=== PATIENT | male | born 1960 | race Caucasian/White ===

== ENCOUNTER 2018-03-21 18:11 | Inpatient (IN) ==
[2018-03-21] MEDS ORDERED: 0.9 % Sodium Chloride 1,000 ML IVC ONE (19:16)
--- NOTE | 2018-03-21 19:32 | Emergency Department Note ---
START Narrative - START START: I examined this patient and my medical decision-making was reviewed with the Resident Physician. I agree with the documented findings, disposition and treatment plan as described except to the extent set forth below. 57 yo M here for fevers x 3 weeks or so. unknown etiology. will check labs, UA, CXR, blood cultures. had recent cbc that was normal. has fever here in ER. long list of possibilities. start with labs and imaging.
[2018-03-21 19:59] LABS: Basophils % 1.2 %; Eosinophils % 0.3 %; Immature Granulocytes % 0.3 % (0-4)
[2018-03-21 20:00] LABS: Hematocrit 36.4 % (37.5-50.1); Hemoglobin 13.3 g/dL (12.9-16.9); Immature Platelets 7.7 % (1.1-6.1); Lymphocytes % 28.5 %; Mean Corpuscular HGB Conc 36.5 g/dL (31.6-35.5); Mean Corpuscular Hemoglobin 31.1 pg (28.0-33.3); Mean Platelet Volume 11.9 fL (9.4-12.4); Monocytes # 0.4 K/mcL (0.0-1.3); Monocytes % 12.3 %; Neutrophils # 1.9 K/mcL (1.6-8.9); Nucleated Red Blood Cells 0.9 /100 WBC (0); Red Blood Count 4.28 M/mcL (4.19-5.50); Red Cell Distribution Width 12.7 % (11.5-14.5); Segmented Neutrophils % 57.4 %
--- NOTE | 2018-03-21 20:04 | Emergency Department Note ---
Disposition Clinical Impression: Abnormal CBC Fever Qualifiers: Fever type: unspecified Qualified Code(s): R50.9 - Fever, unspecified Disposition: Admitted As Inpatient Condition: Good Fever HPI - General Chief Complaint: ED Fever Stated Complaint: fever Source: patient, family Limitations: no limitations Nursing Notes Reviewed: Yes Vital Signs Reviewed: Yes - History of Present Illness HPI Narrative: Patient presents today for evaluation of fevers. Patient states he has had fever since the end of February. The patient states that he was initially seen at urgent care and symptoms did not resolve so he returned where they put him on Keflex and Bactrim which did resolve his symptoms while he was taking antibiotics. Patient states 2 days after the antibiotics finished the fevers returned. He has been seeing his primary care physician this Sunday and was placed on Augmentin for concern for sinus infection. Patient states antibiotics have not been improving his overall symptoms. The patient does not have any other symptoms in regards to pointing towards potential etiology. Does not have any upper respiratory, chest, abdominal or pelvic symptoms. There is no rash. No difficulty with urination. No history of recent exposures. No recent travel. No history of IV drug use. - Related Data Home Medications Medication Instructions Recorded Confirmed Cetirizine HCl [Zyrtec] 10 mg PO DAILY PRN 03/21/18 03/21/18 Allergies Allergy/AdvReac Type Severity Reaction Status Date / Time aspirin Allergy Anaphylaxis Verified 03/02/18 19:16 NSAIDS (Non-Steroidal Allergy Anaphylaxis Verified 03/02/18 19:16 Anti-Inflamma Review of Systems: CONSTITUTIONAL: Fevers and weight loss HEENT: Eyes: No visual changes. Ears, Nose, Throat: No hearing loss, difficulty talking or unable to swallow. SKIN: No rash or itching. CARDIOVASCULAR: No chest pain, chest pressure or chest discomfort. No palpitations or edema. RESPIRATORY: No shortness of breath, cough or sputum. GASTROINTESTINAL: No anorexia, nausea, vomiting or diarrhea. No abdominal pain or blood. GENITOURINARY: No burning on urination or hematuria. NEUROLOGICAL: No headache, dizziness, syncope, paralysis, ataxia, numbness or tingling in the extremities. No change in bowel or bladder control. MUSCULOSKELETAL: No muscle pain, back pain, joint pain or stiffness. Fever PMH - Past Medical History Medical history: Reports: no medical history Psychiatric history: Reports: no psych history - Social History Smoking Status: Never smoker Alcohol use: Reports: none Drug use: Reports: none Physical Exam General: Well appearing, nontoxic, no acute distress Head: Normocephalic Atraumatic Eyes: PERRL, EOMI ENT: Airway patent, no stridor Neck: supple, no meningismus Chest: Lungs clear to auscultation bilateral Cardiac: Regular rate and rhythm, no murmurs, rubs or gallops Abdomen: soft, nontender, nondistended; no guarding, rebound, or tenderness to percussion Musculoskeletal: Calves symmetric, nontender, no palpable cord Skin: No rash, normal skin tone Neuro: Alert and Oriented to person, place, and time; No focal deficit, CN 2-12 symmetric and intact - General Limitations: no limitations General appearance: alert, in no apparent distress, appears intoxicated Course - Reevaluation(s) Reevaluation #1: Patient with abnormal blood work. Discussed with oncology in regards to further management. Blood smears sent. LDH and CT scans requested. Reevaluation #2: Patient continues to feel significant improvement after his initial fluid bolus. Fevers broke. Patient wanted tachycardic. Patient does not appear septic as he is laughing and joking and in good spirits. Patient states that he feels good at this point since the fever has resolved. - Consultations Consultation #1: Discussed with oncology. Patient has abnormal CBC in the setting of fevers, night sweats, weight loss. The patient could have infectious process versus malignancy. Patient will undergo CT scan of head neck chest abdomen pelvis. Also requests LDH. Blood smear was also sent. Called back with the CT results. Infectious versus malignancy. Will possibly need bone marrow biopsy. We will evaluate in the hospital. Consultation #2: Discussed with hospitalist. Patient except for admission. Consult has been placed to oncology. We did discuss what had discussed with oncology in regards to antibiotics. He agrees that Bactrim and Keflex since these had worked previously for him can be restarted. No need for further antibiotics at this point. Vital Signs Temperature 101.6 F H 03/21/18 18:19 Pulse Rate 120 03/21/18 18:19 Respiratory Rate 22 18 18:19 Blood Pressure 118/75 03/21/18 18:19 O2 Sat by Pulse Oximetry 99 03/21/18 18:19 Temperature 99.4 F 03/22/18 00:14 Pulse Rate 97 03/22/18 00:14 Respiratory Rate 16 03/22/18 00:14 Blood Pressure 131/82 03/22/18 00:14 O2 Sat by Pulse Oximetry 97 03/22/18 00:14 Oxygen Delivery Oxygen Delivery Room Air Fever - Lab Data Result diagrams: 03/21/18 19:44 03/21/18 19:44 Lab Results 03/21/18 03/21/18 03/21/18 Range/Units 19:44 19:44 19:44 WBC 3.3 L (4.3-11.1) K/mcL RBC 4.28 (4.19-5.50) M/mcL Hgb 13.3 (12.9-16.9) g/dL Hct 36.4 L (37.5-50.1) % MCV 85.0 (83.0-100.0) fL MCH 31.1 (28.0-33.3) pg MCHC 36.5 H (31.6-35.5) g/dL RDW 12.7 (11.5-14.5) % Plt Count 76 L (140-400) K/mcL MPV 11.9 (9.4-12.4) fL Immature Gran % 0.3 (0-4) % Seg Neutrophils % 57.4 % Lymphocytes % 28.5 % Monocytes % 12.3 % Eosinophils % 0.3 % Basophils % 1.2 % Neutrophils # 1.9 (1.6-8.9) K/mcL Lymphocytes # 0.9 (0.6-4.6) K/mcL Monocytes # 0.4 (0.0-1.3) K/mcL Eosinophils # 0.0 (0.0-0.6) K/mcL Basophils # 0.0 (0.0-0.2) K/mcL Nucleated RBCs/100 WBC 0.9 H (0) /100 WBC Reactive Lymphocytes Present A (Not Present) Blood Smear Review See Below Dohle Bodies Present A (Not Present) Immature Plt Fraction 7.7 H (1.1-6.1) % Polychromasia 1+ A (Not Present) Smear Path Review See Below ESR 18 H (0-10) mm/hr PT 15.0 H (9.4-12.1) Seconds INR 1.4 Sodium (136-145) mEq/L Potassium (3.5-5.1) mEq/L Chloride (98-107) mEq/L Carbon Dioxide (23-29) mEq/L BUN (6-20) mg/dL Creatinine (0.70-1.30) mg/dL Est GFR ( Amer) (> 60) Est GFR (Non-Af Amer) (> 60) BUN/Creatinine Ratio (6-26) Glucose (70-105) mg/dL Calculated Osmolality (280-300) Lactic Acid (0.5-2.2) mmol/L Calcium (8.6-10.3) mg/dL Total Bilirubin (0.3-1.0) mg/dL Direct Bilirubin (0.0-0.2) mg/dL Indirect Bilirubin (0.0-1.2) mg/dL AST (13-39) Units/L ALT (7-52) Units/L Alkaline Phosphatase (34-104) Units/L Troponin I (< 0.04) ng/mL C-Reactive Protein (Less than 10) mg/L Serum Total Protein (6.4-8.9) g/dL Albumin (3.5-5.7) g/dL Globulin (2.4-3.5) g/dL Albumin/Globulin Ratio (1.1-2.2) Lipase (11-82) Units/L Urine Color (Yellow) Urine Clarity (Clear) Urine pH (5.0-8.0) pH Units Ur Specific [place] (1.010-1.025) Urine Protein (Neg-Trace) mg/dL Urine Glucose (UA) (Normal) mg/dL Urine Ketones (Negative) mg/dL Urine Blood (Negative) Urine Nitrite (Negative) Urine Bilirubin (Negative) Urine Urobilinogen (Normal) mg/dL Ur Leukocyte Esterase (Negative) Urine Microscopic RBC (0-3) per hpf Urine Microscopic WBC (0-3) per hpf Ur Squamous Epith Cells (None-Few) per lpf Urine Bacteria (None-Few) per hpf Hyaline Casts (None-Few) per lpf Ur Culture Indicated? (NO) Infectious [place] Assay (Negative) 03/21/18 03/21/18 03/21/18 Range/Units 19:44 19:44 19:44 WBC (4.3-11.1) K/mcL RBC (4.19-5.50) M/mcL Hgb (12.9-16.9) g/dL Hct (37.5-50.1) % MCV (83.0-100.0) fL MCH (28.0-33.3) pg MCHC (31.6-35.5) g/dL RDW (11.5-14.5) % Plt Count (140-400) K/mcL MPV (9.4-12.4) fL Immature Gran % (0-4) % Seg Neutrophils % % Lymphocytes % % Monocytes % % Eosinophils % % Basophils % % Neutrophils # (1.6-8.9) K/mcL Lymphocytes # (0.6-4.6) K/mcL Monocytes # (0.0-1.3) K/mcL Eosinophils # (0.0-0.6) K/mcL Basophils # (0.0-0.2) K/mcL Nucleated RBCs/100 WBC (0) /100 WBC Reactive Lymphocytes (Not Present) Blood Smear Review Dohle Bodies (Not Present) Immature Plt Fraction (1.1-6.1) % Polychromasia (Not Present) Smear Path Review ESR (0-10) mm/hr PT (9.4-12.1) Seconds INR Sodium 132 L (136-145) mEq/L Potassium 3.7 (3.5-5.1) mEq/L Chloride 102 (98-107) mEq/L Carbon Dioxide 21 L (23-29) mEq/L BUN 17 (6-20) mg/dL Creatinine 1.20 (0.70-1.30) mg/dL Est GFR ( Amer) > 60 (> 60) Est GFR (Non-Af Amer) > 60 (> 60) BUN/Creatinine Ratio 14 (6-26) Glucose 139 H (70-105) mg/dL Calculated Osmolality 278 L (280-300) Lactic Acid 2.0 (0.5-2.2) mmol/L Calcium 8.8 (8.6-10.3) mg/dL Total Bilirubin 1.1 H (0.3-1.0) mg/dL Direct Bilirubin 0.3 H (0.0-0.2) mg/dL Indirect Bilirubin 0.8 (0.0-1.2) mg/dL AST 48 H (13-39) Units/L ALT 46 (7-52) Units/L Alkaline Phosphatase 60 (34-104) Units/L Troponin I < 0.03 (< 0.04) ng/mL C-Reactive Protein 109 H (Less than 10) mg/L Serum Total Protein 6.5 (6.4-8.9) g/dL Albumin 3.6 (3.5-5.7) g/dL Globulin 2.9 (2.4-3.5) g/dL Albumin/Globulin Ratio 1.2 (1.1-2.2) Lipase (11-82) Units/L Urine Color (Yellow) Urine Clarity (Clear) Urine pH (5.0-8.0) pH Units Ur Specific [place] (1.010-1.025) Urine Protein (Neg-Trace) mg/dL Urine Glucose (UA) (Normal) mg/dL Urine Ketones (Negative) mg/dL Urine Blood (Negative) Urine Nitrite (Negative) Urine Bilirubin (Negative) Urine Urobilinogen (Normal) mg/dL Ur Leukocyte Esterase (Negative) Urine Microscopic RBC (0-3) per hpf Urine Microscopic WBC (0-3) per hpf Ur Squamous Epith Cells (None-Few) per lpf Urine Bacteria (None-Few) per hpf Hyaline Casts (None-Few) per lpf Ur Culture Indicated? (NO) Infectious [place] Assay (Negative) 03/21/18 03/21/18 03/21/18 Range/Units 19:44 21:03 21:40 WBC (4.3-11.1) K/mcL RBC (4.19-5.50) M/mcL Hgb (12.9-16.9) g/dL Hct (37.5-50.1) % MCV (83.0-100.0) fL MCH (28.0-33.3) pg MCHC (31.6-35.5) g/dL RDW (11.5-14.5) % Plt Count (140-400) K/mcL MPV (9.4-12.4) fL Immature Gran % (0-4) % Seg Neutrophils % % Lymphocytes % % Monocytes % % Eosinophils % % Basophils % % Neutrophils # (1.6-8.9) K/mcL Lymphocytes # (0.6-4.6) K/mcL Monocytes # (0.0-1.3) K/mcL Eosinophils # (0.0-0.6) K/mcL Basophils # (0.0-0.2) K/mcL Nucleated RBCs/100 WBC (0) /100 WBC Reactive Lymphocytes (Not Present) Blood Smear Review Dohle Bodies (Not Present) Immature Plt Fraction (1.1-6.1) % Polychromasia (Not Present) Smear Path Review ESR (0-10) mm/hr PT (9.4-12.1) Seconds INR Sodium (136-145) mEq/L Potassium (3.5-5.1) mEq/L Chloride (98-107) mEq/L Carbon Dioxide (23-29) mEq/L BUN (6-20) mg/dL Creatinine (0.70-1.30) mg/dL Est GFR ( Amer) (> 60) Est GFR (Non-Af Amer) (> 60) BUN/Creatinine Ratio (6-26) Glucose (70-105) mg/dL Calculated Osmolality (280-300) Lactic Acid (0.5-2.2) mmol/L Calcium (8.6-10.3) mg/dL Total Bilirubin (0.3-1.0) mg/dL Direct Bilirubin (0.0-0.2) mg/dL Indirect Bilirubin (0.0-1.2) mg/dL AST (13-39) Units/L ALT (7-52) Units/L Alkaline Phosphatase (34-104) Units/L Troponin I (< 0.04) ng/mL C-Reactive Protein (Less than 10) mg/L Serum Total Protein (6.4-8.9) g/dL Albumin (3.5-5.7) g/dL Globulin (2.4-3.5) g/dL Albumin/Globulin Ratio (1.1-2.2) Lipase 70 (11-82) Units/L Urine Color Dark Yellow (Yellow) Urine Clarity Clear (Clear) Urine pH 5.5 (5.0-8.0) pH Units Ur Specific [place] 1.024 (1.010-1.025) Urine Protein Trace (Neg-Trace) mg/dL Urine Glucose (UA) Normal (Normal) mg/dL Urine Ketones Negative (Negative) mg/dL Urine Blood Negative (Negative) Urine Nitrite Negative (Negative) Urine Bilirubin Negative (Negative) Urine Urobilinogen Normal (Normal) mg/dL Ur Leukocyte Esterase Negative (Negative) Urine Microscopic RBC 5-15 H (0-3) per hpf Urine Microscopic WBC 0-3 (0-3) per hpf Ur Squamous Epith Cells Few (None-Few) per lpf Urine Bacteria None Seen (None-Few) per hpf Hyaline Casts None Seen (None-Few) per lpf Ur Culture Indicated? NO (NO) Infectious [place] Assay Negative (Negative)
[2018-03-21 20:06] LABS: INR 1.4
[2018-03-21 20:18] LABS: Lymphocytes # 0.9 K/mcL (0.6-4.6); Platelet Count 76 K/mcL (140-400)
[2018-03-21 20:19] LABS: Dohle Bodies Present (Not Present); Polychromasia 1+ (Not Present); Reactive Lymphocytes Present (Not Present)
[2018-03-21 20:20] LABS: Alanine Aminotransferase 46 Units/L (7-52); Albumin 3.6 g/dL (3.5-5.7); Albumin/Globulin Ratio 1.2 (1.1-2.2); Alkaline Phosphatase 60 Units/L (34-104); Aspartate Amino Transferase 48 Units/L (13-39); BUN/Creatinine Ratio 14 (6-26); Bilirubin,Direct 0.3 mg/dL (0.0-0.2); Bilirubin,Indirect 0.8 mg/dL (0.0-1.2); Bilirubin,Total 1.1 mg/dL (0.3-1.0); Blood Urea Nitrogen 17 mg/dL (6-20); Calcium 8.8 mg/dL (8.6-10.3); Carbon Dioxide 21 mEq/L (23-29); Chloride 102 mEq/L (98-107); Globulin 2.9 g/dL (2.4-3.5); Glucose 139 mg/dL (70-105); Osmolality,Calculated 278 (280-300); Potassium 3.7 mEq/L (3.5-5.1); Sodium 132 mEq/L (136-145); Total Protein 6.5 g/dL (6.4-8.9); Troponin I < 0.03 ng/mL (< 0.04); eGFR For African Americans > 60 (> 60); eGFR For Non-African Americans > 60 (> 60)
[2018-03-21] MEDS ORDERED: Isovue-370 500 ML INFUS..BTL IV ONE (20:44)
[2018-03-21 21:53] LABS: Bilirubin,Urine Negative (Negative); Blood,Urine Negative (Negative); Clarity,Urine Clear (Clear); Color,Urine Dark Yellow (Yellow); Glucose,Urine (UA) Normal (Normal); Ketones,Urine Negative (Negative); Leukocyte Esterase,Urine Negative (Negative); Nitrite,Urine Negative (Negative); PH,Urine 5.5 pH Units (5.0-8.0); Protein,Urine Trace mg/dL (Neg-Trace); Specific Gravity,Urine 1.024 (1.010-1.025); Urobilinogen,Urine Normal (Normal)
[2018-03-21 21:55] LABS: Bacteria,Urine None Seen per hpf (None-Few); Hyaline Casts,Urine None Seen per lpf (None-Few); Squamous Epithelial Cell,Urine Few per lpf (None-Few); WBC,Urine 0-3 per hpf (0-3)
[2018-03-21] MEDS ORDERED: cephALEXin 250 MG CAPSULE PO ONE (23:30)
[2018-03-21] MEDS ORDERED: Sulfamethoxazole/Trimeth DS 1 EACH TABLET PO ONE (23:30)
[2018-03-22] MEDS ORDERED: Naloxone 0.4 MG/ML INJ IVP PRN (00:38)
[2018-03-22] MEDS ORDERED: Acetaminophen 325 MG TABLET PO PRN (00:38)
--- NOTE | 2018-03-22 01:20 | Internal Med History&Physical ---
<JessieBrendon - Last Filed: 03/22/18 02:21> Date of Encounter: 03/22/18 Time of Encounter: 01:00 Internal Medicine - H&P: HPI Chief complaint: Persistent fever Admitted From: Emergency Dept Plans for Post Hospital Care: Home History of present illness: Mr. Murrieta is a 57 year old male with no significant PMHx or surgical history presents to ED for persistent fever of 3 weeks. Patient has had fever and chills and originally presented to urgent care after 1 week of symptoms, where he received Keflex and Bactrim with resolution of symptoms for ~1 week. However , fever and chills returned after completion of antibiotic course. He went to his primary care physician on 03/18/18 and was placed on Augmentin for concern for sinus infection, but symptoms have persisted. He reports that he took tylenol for a few days, which improved the fever, but discontinued today due to received his lab results of marginally elevated liver enzymes. The patient works as a RN at the [employer]. He denies nausea, vomiting, abdominal pain, diarrhea, constipation, CP, SOB, dysuria, hematuria, but does state his urine is darker recently. He has not had any other antibiotics for the last 2 years. Denies recent travel. Able to tolerate PO, but does feel dehydrated. He denies history of smoking. Past Med Surg Social Fam HX - Past Medical History Medical history: no medical history Psychiatric history: no psych history - Social History Smoking Status: Never smoker Smokeless Tobacco Status: No Alcohol use: none Drug use: none - Family History Father Hx Family Cardiac Disorders: Yes (triple bypass) Hx Family Cancer: Yes (colon) Internal Medicine - H&P: Meds Cetirizine HCl [Zyrtec] 10 mg PO DAILY PRN 03/21/18 [History] 3 Allergy/AdvReac Type Severity Reaction Status Date / Time aspirin Allergy Anaphylaxis Verified 03/02/18 19:16 NSAIDS (Non-Steroidal Allergy Anaphylaxis Verified 03/02/18 19:16 Anti-Inflamma All Systems PM: A 10-system review of systems was performed and is negative for pertinent findings except as documented above in the HPI. - Constitutional Constitutional: chills, fever(s), no night sweats - EENT Eyes: no change in vision, no discharge, no pain, no photophobia Ears: no ear discharge, no ear pain, no tinnitus Nose, mouth and throat: nasal congestion, post-nasal drip, no dysphagia, no neck pain, no sore throat - Cardiovascular Cardiovascular ROS IM: no chest pain, no diaphoresis, no dyspnea, no lightheadedness, no palpitations, no syncope - Respiratory Respiratory: cough, no dyspnea, no wheezing, no excessive phlegm production Additional comments: dry cough without sputum. - Gastrointestinal Gastrointestinal: no abdominal pain, no diarrhea, no hematemesis, no hematochezia, no melena, no nausea, no vomiting - Genitourinary Genitourinary ROS male: no dysuria, no hematuria, no urinary frequency - Musculoskeletal Musculoskeletal ROS IM: no numbness, no tingling - Integumentary Integumentary IM: no rash, no unusual bruising - Neurological Neurological ROS: no confusion, no convulsions, no focal weakness, no numbness, no tingling, no tremor(s) - Hematologic/Lymphatic Hematologic/Lymphatic: no easy bleeding, no easy bruising - Constitutional Vitals: Temp Pulse Resp BP Pulse Ox 99.4 F 97 16 131/82 97 03/22/18 00:14 03/22/18 00:14 03/22/18 00:14 03/22/18 00:14 03/22/18 00:14 General appearance: Present: A&O X 3, pleasant, no acute distress, answers questions appropriately - Head Head exam: Present: atraumatic, normocephalic - Eye Eye exam: Present: EOMI, conjuntiva pink, sclera anicteric - Neck Neck exam general surgery: Present: supple, trachea midline. Absent: lymphadenopathy - Respiratory Respiratory exam: Present: CTAB. Absent: accessory muscle use, rales, rhonchi, wheezes - Cardiovascular Cardiovascular exam: Present: RRR, +S1, +S2. Absent: diastolic murmur, gallop, rubs, systolic murmur - GI/Abdominal GI/Abdominal exam: Present: normal bowel sounds, soft, no peritoneal signs. Absent: distended, tenderness - Extremities Exam Extremities exam: Present: warm, radial pulses palpable and symmetrical. Absent : calf tenderness, cyanotic, pedal edema - Neurological Exam Neurological exam: Present: CN II-XII intact, oriented X3, no focal deficits. Absent: pronater drift, facial droop, speech deficit - Skin Skin exam: Present: dry, intact Internal Med - H&P Results - Labs CBC & Chem 7: 03/22/18 01:07 03/22/18 01:07 - Assessment and plan (1) Sepsis Current Visit: Yes Status: Acute Assessment and plan: Patient with T = 101.6F, RR = 22, WBC = 3.3 on presentation and meets sepsis criteria, unknown source of infection. CXR is unremarkable. CT Head/neck/chest are also unremarkable. CT ab/pelvis does reveal BL nephrolithiasis with 5mm distal left ureteral stone, but asymptomatic. He reports that Augmentin is ineffective and bactrim/ cephalexin only provided temporary relief. Continue with Bactrim and Keflex as they have provided symptomatic relief in the past, pending blood culture and urine culture. Tylenol prn for fever. Oncology consulted in the setting of leukocytopenia and thrombocytopenia, recommendations appreciated. Start IVF NPO except for medications for possible bone biopsy tomorrow Qualifiers: Sepsis type: sepsis due to unspecified organism Qualified Code(s): A41.9 - Sepsis, unspecified organism (2) Abnormal CBC Current Visit: Yes Status: Acute Assessment and plan: Consult Oncology. Possible bone marrow biopsy tomorrow. Treat per above. (3) DVT prophylaxis Current Visit: Yes Status: Acute Assessment and plan: SCDs (4) Elevated PSA Current Visit: Yes Status: Acute Assessment and plan: Elevated PSA = 12.[address] pelvis/abd unremarkable. Follow-up outpatient. - Time Spent With Patient Total time spent is greater than 50% in coordination of care (as documented) at patient's floor/unit and/or counseling patient: Greater than 35 minutes <Keegan Colmenares P - Last Filed: 03/22/18 05:47> Date of Encounter: 03/21/18 Time of Encounter: 23:59 Internal Medicine - H&P: HPI History of present illness: Mr. Murrieta is a 57 year old male All Systems PM: A 10-system review of systems was performed and is negative for pertinent findings except as documented above in the HPI. - Constitutional Vitals: Temp Pulse Resp BP Pulse Ox 99.5 F 84 16 117/73 94 03/22/18 04:12 03/22/18 04:12 03/22/18 04:12 03/22/18 04:12 03/22/18 04:12 Internal Med - H&P Results - Labs CBC & Chem 7: 03/22/18 01:07 03/22/18 01:07 Labs: Short CBC 03/22/18 Range/Units 01:07 WBC 3.5 L (4.3-11.1) K/mcL Hgb 12.3 L (12.9-16.9) g/dL Hct 33.6 L (37.5-50.1) % Plt Count 70 L (140-400) K/mcL Neutrophils # 1.8 (1.6-8.9) K/mcL BMP 03/22/18 01:07 Sodium 132 L Potassium 3.4 L Chloride 101 Carbon Dioxide 21 L BUN 16 Creatinine 1.04 Glucose 132 H Calcium 8.2 L Cardiac Enzymes 03/22/18 Range/Units 01:07 Troponin I < 0.03 (< 0.04) ng/mL - Attending Attestation I saw and evaluated the patient, and performed my own physical examination on . I discussed the case with the resident, and I reviewed the resident's note and agree with findings and plan as documented. Briefly, patient admitted with 2 week history of fevers of unknown origin. He was treated keflex and bactrim as outpatient with symptomatic relief. Symptoms came back after stopping. Then tried amoxicillin with no relief of fever. Only possible source of infection is a chronic sinusitis. Consider ENT consult. Heme/onc already consulted by ED and will see patient tomorrow. Will make NPO for possible bone marrow biopsy tomorrow. Patient is in no acute distress at this time. No symptoms. Temp is 99.4. We will treat fever with Tylenol. We will defer further work up to heme/onc in regards to his multiple CBC abnormalities. - Assessment and plan (1) Abnormal CBC Current Visit: Yes Status: Acute (2) Sepsis Current Visit: Yes Status: Acute Qualifiers: Sepsis type: sepsis due to unspecified organism Qualified Code(s): A41.9 - Sepsis, unspecified organism (3) DVT prophylaxis Current Visit: Yes Status: Acute (4) Elevated PSA Current Visit: Yes Status: Acute - Time Spent With Patient Total time spent is greater than 50% in coordination of care (as documented) at patient's floor/unit and/or counseling patient:
[2018-03-22 01:47] LABS: Basophils % 1.1 %; Eosinophils % 0.3 %; Hematocrit 33.6 % (37.5-50.1); Hemoglobin 12.3 g/dL (12.9-16.9); Immature Platelets 10.1 % (1.1-6.1); Lymphocytes % 35.6 %; Mean Corpuscular HGB Conc 36.6 g/dL (31.6-35.5); Mean Corpuscular Hemoglobin 31.1 pg (28.0-33.3); Mean Corpuscular Volume 84.8 fL (83.0-100.0); Monocytes # 0.4 K/mcL (0.0-1.3); Monocytes % 11.2 %; Neutrophils # 1.8 K/mcL (1.6-8.9); Nucleated Red Blood Cells 0.9 /100 WBC (0); Red Blood Count 3.96 M/mcL (4.19-5.50); Red Cell Distribution Width 12.7 % (11.5-14.5); Segmented Neutrophils % 51.8 %
[2018-03-22 01:49] LABS: Lymphocytes # 1.3 K/mcL (0.6-4.6); Platelet Count 70 K/mcL (140-400)
[2018-03-22] MEDS: 0.9 % Sodium Chloride 1,000 ML IVC SCH ×2 (01:56→11:40)
[2018-03-22 02:04] LABS: BUN/Creatinine Ratio 15 (6-26); Blood Urea Nitrogen 16 mg/dL (6-20); Calcium 8.2 mg/dL (8.6-10.3); Carbon Dioxide 21 mEq/L (23-29); Chloride 101 mEq/L (98-107); Glucose 132 mg/dL (70-105); Osmolality,Calculated 277 (280-300); Potassium 3.4 mEq/L (3.5-5.1); Sodium 132 mEq/L (136-145); eGFR For African Americans > 60 (> 60); eGFR For Non-African Americans > 60 (> 60)
[2018-03-22 02:10] LABS: Platelet Estimate Decreased (Normal); Reactive Lymphocytes Present (Not Present)
[2018-03-22] MEDS: Sulfamethoxazole/Trimeth DS 1 EACH TABLET PO SCH ×2 (07:42→21:21)
[2018-03-22] MEDS: cephALEXin 500 MG CAPSULE PO SCH ×2 (07:42→21:20)
[2018-03-22] MEDS ORDERED: Piperacillin/Tazobactam 3.375 GM in 0.9 % Sodium Chloride Mini Bag 100 ML IVPB SCH (08:00)
--- NOTE | 2018-03-22 13:35 | Oncology Inp Consult Note ---
<Michelle Mayes L - Last Filed: 03/25/18 10:49> Date of Encounter: 03/22/18 Time of Encounter: 10:30 Assessment and Plan (1) Pancytopenia Status: Acute Assessment and plan: Pancytopenia which is relatively acute and not present on lab work from 2017. Patient has been experiencing fevers of unknown origin for about 3 weeks, believed to have been infectious for which he has been prescribed antibiotics for with no real resolution as detailed in HPI. Recommend ID consultation. Fevers may be malignant. Ordered bone marrow biopsy and aspiration to assess for bone marrow pathology such as low grade MDS or form of acute leukemia. His leukopenia and anemia are mild and thrombocytopenia appears moderate. Infectious etiology remains a concern although it is interesting that his fevers have lasted for a number of weeks through multiple antibiotics, malignancy remains in differential and we will order BMB as we would not want to delay treatment, patient is young and robust and a prime candidate for potential therapy. He does report a recent 15 pound weight loss and night sweats which is further concerning for malignant etiology. Will also assess HIV screening, LDH, Fibrinogen, B12, folate, iron profile, ferritin and PTT PT/INR is slightly elevated He has had CT imaging of his head, neck, chest, abdomen and pelvis without acute findings or lymphadenoapthy. CT head shows findings concerning for chronic sinusitis, would appreciate further input from ID. Dependent upon further workup and and vital/lab monitoring, if patients counts improve and he remains afebrile over weekend and stable for discharge per primary team, he will have a short term follow up arranged with oncology next week to discuss BMB results, otherwise, we will continue to follow him during his hospital stay - Data of Consult Patient: new to practice Consult date: 03/22/18 Requesting Physician: Keegan Colmenares Primary Care Provider: PCP NONE - Consult Narrative Reason for consult: Pancytopenia History of present illness: Mr. Murrieta is a 57 year old male admitted inpatient for fevers of unknown origin and pancytopenia. Patients fevers began on March 02, relieved by tylenol. He presented to the Urgent care and was diagnosed with a viral syndrome. His fevers persisted and he presented back to urgent care on and was treated with Bactrim for sinusitis. Patient does report issues with chronic sinus symptoms and prior sinus surgery, he also reports increased fatigue, lack of energy, drenching night sweats and weight loss of about 15 pounds over the past 3-4 weeks. His fevers subsided while on Bactrim for 7 days, with fevers returning about 3 days after he finished his Bactrim rx, on around the date of March 17. His PCP placed him on Augmentin on March 18. Since this time he has continued to experience fevers up to 101F which led to his presentation to ER. He had routine lab work performed with his PCP on March 16 which did not reveal pancytopenia. Labwork on presentation does reveal mild pancytopenia, oncology consulted for further evaluation of symptoms as above and pancytopenia. Past Med Surg Social Fam HX - Past Medical History Medical history: no medical history Psychiatric history: no psych history - Past Surgical History Surgical History: herniorrhaphy, tonsilectomy, vasectomy - Social History Smoking Status: Never smoker Smokeless Tobacco Status: No Alcohol use: none Drug use: none - Family History Father Hx Family Cardiac Disorders: Yes (triple bypass) Hx Family Cancer: Yes (colon) Medications and Allergies Cetirizine HCl [Zyrtec] 10 mg PO DAILY PRN 03/21/18 [History] Doxycycline 100 mg PO BID 11 Days #22 capsule 03/25/18 [Rx] 3 Allergy/AdvReac Type Severity Reaction Status Date / Time aspirin Allergy Anaphylaxis Verified 03/22/18 08:34 NSAIDS (Non-Steroidal Allergy Anaphylaxis Verified 03/22/18 08:34 Anti-Inflamma Constitutional: Present: fatigue, fever(s), night sweats, weakness, weight loss. Absent: chills Eyes: Absent: change in vision Nose, mouth and throat: Absent: dysphagia Additional comments: dry cough at times, chronic sinus pressure Cardiovascular: Absent: chest pain, irregular heart rhythm Respiratory: Present: as per HPI. Absent: dyspnea Gastrointestinal: Absent: abdominal pain, hematemesis, hematochezia, melena, nausea, vomiting Additional comments: denies dysuria or hematuria Musculoskeletal: Absent: numbness Integumentary: Absent: rash, wounds Neurological: Absent: focal weakness, frequent falls Hematologic/Lymphatic: Present: as per HPI Oncology - Exam - Constitutional Vitals: Temp Pulse Resp BP Pulse Ox 98.5 F 77 16 109/72 97 03/22/18 11:42 03/22/18 11:42 03/22/18 11:42 03/22/18 11:42 03/22/18 11:42 General appearance: cooperative, no acute distress, no febrile - Head Head exam: Present: atraumatic - ENT ENT exam: Present: mucous membranes moist - Respiratory Respiratory exam: Present: CTAB. Absent: respiratory distress - Cardiovascular Cardiovascular exam: Present: RRR, +S1, +S2 - GI/Abdominal GI/Abdominal exam: Present: normal bowel sounds, soft. Absent: tenderness - Extremities Exam Extremities exam: Present: normal inspection. Absent: calf tenderness - Neurological Exam Neurological exam: Present: alert, oriented X3, no focal deficits, strengths equal and symetr throughout - Psychiatric Psychiatric exam: Present: normal affect, normal mood - Skin Skin exam: Present: dry, intact, normal color, warm Oncology - Results Labs: Cardiac Enzymes 03/22/18 Range/Units 06:12 Troponin I < 0.03 (< 0.04) ng/mL Consult Discharge Plan - Plan Instructions: Doxycycline (By mouth), Sinusitis (GEN), Thrombocytopenia (DC), Fever in Adults, Email Campaign Manager (GEN) Additional Instructions: Follow-up appointments: If there is not an appointment listed below, please call your physician and schedule a follow-up appointment. If you have congestive heart failure and your symptoms return, make an appointment with your physician. Medication List: Carry an up to date list of medications you are taking at all time. We have given you an updated medication list including any new medications that you have been prescribed. Please provide that list to your primary provider Symptoms: If your condition changes or you experience any of the following symptoms, notify your physician immediately: Unusual or worsening pain, fever, persistent nausea and vomiting, bleeding, increase in swelling (especially in your legs), sudden weight gain, extreme dizziness, chest pain, increased drainage or redness from a wound or incision. Go to the emergency department if you experience a problem with breathing. Weights: If you have a history of swelling or shortness of breath, weigh yourself daily and notify your physician if you have a weight gain of two or more pounds in one day or 5 or more pounds in a week. If you experience any of the warning signs for stroke: Sudden numbness or weakness of the face, arm or leg; especially on one side of the body, sudden confusion, trouble speaking or understanding, sudden trouble seeing in one or both eyes, sudden trouble walking, dizziness, loss of balance or coordination, sudden sever headache with no cause; Call 911 or go to the emergency room. Stroke is a medical emergency. Some risk factors for stroke: Age, cigarette smoking, diabetes, excessive alcohol consumption, family history , high blood pressure, overweight, physical inactivity, prior stroke, heart attack, diagnosis of carotid artery stenosis or other artery disease. If you smoke, STOP: Smoking or tobacco use significantly increases your risk of heart and lung disease. Your chance of disease greatly increases if you continue to smoke. For more information, call the [place] tobacco quit line for smoking cessation 9-524- QUIT-NOW ( ) Referrals: Venkat Gardiner [Non-Partnered Physician] - 04/02/18 9:00 am NONE,PCP [Primary Care Provider] - Prescriptions: Doxycycline 100 mg PO BID 11 Days #22 capsule <Venkat Gardiner - Last Filed: 04/02/18 08:51> Date of Encounter: 03/22/18 - Data of Consult Requesting Physician: Keegan Colmenares Primary Care Provider: PCP NONE - Consult Narrative History of present illness: Mr. Murrieta is a 57 year old male Oncology - Exam - Constitutional Vitals: Temp Pulse Resp BP Pulse Ox 97.9 F 77 16 126/79 98 03/25/18 07:10 03/25/18 07:10 03/25/18 07:10 03/25/18 07:10 03/25/18 07:10 Oncology - Results Labs: 3 03/23/18 03:46 YRIS Titer <1:80 - Attending Attestation Seen and examined patient and agree with above. The pancytopenia is of acute onset and is worsening. Give his persistent fevers, I would recommend ID consult also. I do anticipate that he will need BM Bx to definitively delineate what is ongoing.
[2018-03-22] MEDS ORDERED: *HR* Midazolam HCl 2 MG/2 ML VIAL IVP ONE (13:56)
[2018-03-22] MEDS ORDERED: *HR* FentaNYL (PF) 100 MCG/2 ML VIAL IVP ONE (13:56)
--- NOTE | 2018-03-22 14:24 | IR Procedure Note ---
Date of procedure: 03/22/18 Consent Obtained: Verbal consent, Written consent Timeout: Correct patient and procedure verified, Correct site verified, Time out performed, Skin prep completed Local anesthetic: Lidocaine 1% Indications: Pancytopenia Procedure Performed: Bone marrow biopsy Was there an boiler assistant operator present: No Site/Technique: Bone marrow biopsy performed Results/Findings: Bone marrow biopsy and aspiration performed Estimated blood loss (cc): 2 Complications: None; Tolerated procedure well Post Procedure Treatment Plan: Continue inpatient care Specimen: 10 cc marrow, 11 gauge core needle biopsy
--- NOTE | 2018-03-22 14:25 | Infectious Disease Consult ---
Date of Encounter: 03/22/18 Time of Encounter: 14:23 Assessment and Plan (1) FUO (fever of unknown origin) Status: Acute Assessment and plan: Etiology not clear. Possible infectious etiology would be sinusitis but does not appear to be high on my differential. Patient had no travel history and no tick bites. Patient with fever and thrombocytopenia and leukopenia could be secondary to Ehrlichia or Anaplasma but he adamantly denies having any ticks. In the meantime patient does have a sinusitis I might just given doxycycline and see if he improves. LFTs are within normal limits so will not check hepatitis panel. HIV, blood cultures, ESR and CRP, LDH and peripheral smear have all been checked. I will check rheumatoid factor, YRIS and procalcitonin level. High on my differential is myelodysplastic syndrome. We will await heme on recommendations. Patient is getting a bone marrow biopsy apparently. Inflammatory or autoimmune diseases also my differential but within normal ESR or slightly elevated. Makes it a little bit lower on my differential. (2) Sinusitis Status: Acute Qualifiers: Sinusitis location: other Chronicity: chronic Qualified Code(s): J32.8 - Other chronic sinusitis (3) Leukopenia Status: Acute Qualifiers: Leukopenia type: unspecified Qualified Code(s): D72.819 - Decreased white blood cell count, unspecified (4) Thrombocytopenia Status: Acute (5) Sepsis Status: Acute Assessment and plan: I am not sure this is sepsis versus SIRS. We do have 3 SIRS criteria but we do not have a source of infection. Qualifiers: Sepsis type: sepsis due to unspecified organism Qualified Code(s): A41.9 - Sepsis, unspecified organism (6) Weight loss Status: Acute Assessment and plan: Patient has lost 15 pounds in the last month Infectious Disease HPI - Data of Consult Patient: new to practice Consult date: 03/22/18 Requesting Physician: Keegan Colmenares Primary Care Provider: PCP NONE - Consult Narrative Reason for consult: FUO History of present illness: Mr. Murrieta is a 57 year old male Patient is a 57-year-old gentleman with past medical history significant for MENTIONED below was admitted to the hospital for fever of unknown origin. We are consulted for orders and antibiotic recommendations. Patient tells me that on March 02 he started having fevers. Patient went to urgent care and was told that the viral syndrome to stay hydrated etc. Patient states that his fever did not subside and on March 07 he went back to the urgent care and they thought that he had the superimposed bacterial sinusitis because of his symptoms. Patient was started on Keflex and Bactrim from March 07 through March 14. Patient tells me while he is on antibiotics and was feeling great. Once the antibiotics were stopped on March 17 in the afternoon patient started feeling febrile again. Other than fevers patient usually starts getting flushed and sometimes has chills but no rigors. Patient also states that he has had weight loss and significant diaphoresis at night. Other than that his review of system is positive for fatigue, lack of energy, sinus pressure and sinus headache, postnasal drip, dry cough at times, and intermittent nausea. Patient denies any earache denies any toothache denies any chest pain or shortness of breath. Patient denies any abdominal pain no vomiting no diarrhea no constipation. Patient denies any urinary symptoms. Patient denies any joint pain out of the ordinary and denies any rash. Patient lives here in [place] with his . Patient is a nurse at the [employer]. Patient denies any travel in the last couple of years. Patient denies any recent tick bite or noticing intake on him. Patient has a cat at home that stays outside. Patient tells me that they have an infestation of Comfort bugs. Patient has children and grandchildren but none of them were sick. 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 He does have contact with [facility] patients but it is not as close contact. Since admission patient has been febrile with a MAXIMUM TEMPERATURE of 101.6 Fahrenheit, he has been tachycardic and had leukopenia and thrombocytopenia. He had a WBC of 3.3 with 57% neutrophil, 29% lymphocytes and 12.3% monocytes. Apparently there was also reactive lymphocytes and positive dohle bodies. Peripheral smear revealed few atypical reactive-appearing lymphocytes.. Nucleated red cells. Patient also had elevated LDH. A CT of the chest showed no acute intrathoracic process. CT of the abdomen and pelvis done on March 21 shows a 5 mm distal left ureteral stone with bilateral nephrolithiasis. CT of the head reveals paranasal sinus disease likely chronic. CT of the neck reveals no acute abnormality soft tissue structures. CC: Keegan Colmenares Past Med Surg Social Fam HX - Past Medical History Medical history: no medical history Psychiatric history: no psych history - Past Surgical History Surgical History: herniorrhaphy, tonsilectomy, vasectomy - Social History Smoking Status: Never smoker Smokeless Tobacco Status: No Alcohol use: none Drug use: none - Family History Father Hx Family Cardiac Disorders: Yes (triple bypass) Hx Family Cancer: Yes (colon) Infectious Disease-CN:Meds Cetirizine HCl [Zyrtec] 10 mg PO DAILY PRN 03/21/18 [History] Amoxicillin/Clavulanate [Augmentin] 1 tab PO BID 03/22/18 [History] 3 Allergy/AdvReac Type Severity Reaction Status Date / Time aspirin Allergy Anaphylaxis Verified 03/22/18 08:34 NSAIDS (Non-Steroidal Allergy Anaphylaxis Verified 03/22/18 08:34 Anti-Inflamma Review of systems: 10 point review of systems done, negative other for what is mentioned in history of present illness Exam - Constitutional Vitals: Temp Pulse Resp BP Pulse Ox 98.5 F 75 18 115/76 99 03/22/18 11:42 03/22/18 14:14 03/22/18 14:14 03/22/18 14:14 03/22/18 14:14 General appearance: average body habitus, no acute distress, no febrile - Head Head exam: Present: atraumatic, normocephalic - Eye Eye exam: Present: EOMI, PERRL, sclera anicteric - ENT ENT exam: Present: mucous membranes dry Additional comments: No oral lesions noted - Neck Neck exam: Present: full ROM. Absent: lymphadenopathy, meningismus - Respiratory Respiratory exam: Present: CTAB. Absent: rhonchi, wheezes - Cardiovascular Cardiovascular exam: Present: RRR, +S1. Absent: systolic murmur - GI/Abdominal GI/Abdominal exam: Present: normal bowel sounds, soft. Absent: tenderness - Extremities Exam Extremities exam: Present: full ROM, normal inspection. Absent: calf tenderness Additional comments: No joint effusion - Back Exam Back exam: Absent: CVA tenderness (L), CVA tenderness (R), vertebral tenderness - Neurological Exam Neurological exam: Present: alert, oriented X3. Absent: speech deficit - Psychiatric Psychiatric exam: Present: normal affect, normal mood - Skin Skin exam: Present: normal color. Absent: rash Infectious Disease CN: Results - Labs CBC & Chem 7: 05/18/18 01:07 03/22/18 01:07 Consult Discharge Plan - Plan Referrals: NONE,PCP [Primary Care Provider] -
[2018-03-22] MEDS: Doxycycline 100 MG CAPSULE PO SCH ×2 (15:01→21:20)
--- NOTE | 2018-03-22 15:26 | Internal Med Progress Note ---
Date of Encounter: 03/22/18 Time of Encounter: 15:24 - Assessment and plan (1) FUO (fever of unknown origin) Current Visit: Yes Status: Acute Assessment and plan: presented with fevers for the last 3 weeks. Etiology unknown at this time. No clear infectious source. Chest CT, ABD CT nonacute. Head CT did show chronic paranasal sinus disease. HIV, blood cultures, ESR and CRP, LDH and peripheral smear have all been checked. Hemodynamically stable, no tachycardia or hypotension. Evaluated by infectious disease who noted possible sinusitis however ID more suspicious for myelodysplastic syndrome. Started on doxycycline. (2) Pancytopenia Current Visit: Yes Status: Acute Assessment and plan: With decrease in WBC, RBC and platelets. S/p bone marrow biopsy on 03/21/18. Hematology following. (3) Sinusitis Current Visit: Yes Status: Acute Assessment and plan: Symptomatic with postnasal drip, cough and fever for [address] with chronic paranasal sinus disease. Evaluated by ID who recommended doxycycline for now. Qualifiers: Sinusitis location: other Chronicity: chronic Qualified Code(s): J32.8 - Other chronic sinusitis (4) Sepsis Current Visit: Yes Status: Acute Assessment and plan: Patient with T = 101.6F, RR = 22, WBC = 3.3 on presentation and meets sepsis criteria, unknown source of infection however treating for possible sinusitis. Head CT with chronic paranasal sinus disease. CXR is unremarkable. CT neck/ chest are also unremarkable. CT ab/pelvis does reveal BL nephrolithiasis with 5mm distal left ureteral stone, but asymptomatic. Continue doxycycline for sinusitis. ID following. Qualifiers: Sepsis type: sepsis due to unspecified organism Qualified Code(s): A41.9 - Sepsis, unspecified organism (5) Elevated PSA Current Visit: Yes Status: Acute Assessment and plan: Elevated PSA = 12.[address] pelvis/abd unremarkable. Follow-up outpatient. (6) DVT prophylaxis Current Visit: Yes Status: Acute Assessment and plan: SCDs - Time Spent With Patient Total time spent is greater than 50% in coordination of care (as documented) at patient's floor/unit and/or counseling patient: - Subjective Interval history: Seen and examined at bedside. Patient is new to me, information obtained from chart review and patient report. Complains of generalized weakness and malaise otherwise has no complaints. Thinks he had a fever overnight. No night sweats. No cough, no dysuria, no rash or known bug bites. No loose stool. No implanted devices are prosthesis. No dental abscesses. 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 - Constitutional Vitals: Temp Pulse Resp BP Pulse Ox 98.1 F 76 14 114/76 100 03/22/18 15:03 03/22/18 15:05 03/22/18 15:05 03/22/18 15:05 03/22/18 15:05 General appearance: Present: A&O X 3, pleasant, no acute distress, answers questions appropriately - Head Head exam: Present: atraumatic, normocephalic - Eye Eye exam: Present: PERRL, conjuntiva pink, sclera anicteric Pupils: Present: PERRL - Neck Neck exam general surgery: Present: supple, trachea midline. Absent: lymphadenopathy - Respiratory Respiratory exam: Present: CTAB. Absent: accessory muscle use, rales, rhonchi, wheezes - Cardiovascular Cardiovascular exam: Present: RRR, +S1, +S2. Absent: diastolic murmur, gallop, rubs, systolic murmur - GI/Abdominal GI/Abdominal exam: Present: normal bowel sounds, soft, no peritoneal signs. Absent: distended, tenderness - Extremities Exam Extremities exam: Present: warm, radial pulses palpable and symmetrical. Absent : calf tenderness, cyanotic, pedal edema - Neurological Exam Neurological exam: Present: CN II-XII intact, oriented X3, no focal deficits. Absent: pronater drift, facial droop, speech deficit - Skin Skin exam: Present: dry, intact Internal Medicine: Result - Labs CBC & Chem 7: 03/22/18 01:07 03/22/18 01:07 Labs: Cardiac Enzymes 03/22/18 Range/Units 06:12 Troponin I < 0.03 (< 0.04) ng/mL - ABG Interpretation ABG results: PT/INR, D-dimer PT 15.0 Seconds (9.4-12.1) H 03/21/18 19:44 - VTE Documentation of Mechanical Device: Intermittent pneumatic compression device Consult Discharge Plan - Plan Referrals: NONE,PCP [Primary Care Provider] -
--- NOTE | 2018-03-22 23:26 | Electrocardiograph Report ---
[address] [address] Test Date: 2018-03-21 Pat Name: Jas Murrieta Department: 102 Room: 3B Gender: M Boiler Fitter: Carlos : 1960 Requested By: [id number] Order Number: [id number] Reading MD: Liliane Valenzuela Measurements Intervals [place] Rate: 95 P: 9 GA: 127 QRS: 28 QRSD: 98 T: 30 QT: 359 QTc: 412 Interpretive Statements SINUS RHYTHM Electronically Signed On 03-22-2018 23:25:09 EDT by Liliane Valenzuela
--- NOTE | 2018-03-22 23:29 | Electrocardiograph Report ---
[address] [address] Test Date: 2018-03-22 Pat Name: Jas Murrieta Department: 113 Room: 3B Gender: M Paper Coater: WENDY : 1960 Requested By: Keegan Colmenares Order Number: [id number] Reading MD: Liliane Valenzuela Measurements Intervals [place] Rate: 89 P: 28 WA: 139 QRS: 30 QRSD: 102 T: 30 QT: 363 QTc: 409 Interpretive Statements SINUS RHYTHM Electronically Signed On 03-22-2018 23:27:48 EDT by Liliane Valenzuela
[2018-03-23 04:34] LABS: Mean Corpuscular Hemoglobin 31.1 pg (28.0-33.3); Mean Platelet Volume 12.6 fL (9.4-12.4)
[2018-03-23 04:36] LABS: Hematocrit 33.4 % (37.5-50.1); Immature Platelets 11.7 % (1.1-6.1); Mean Corpuscular HGB Conc 35.9 g/dL (31.6-35.5); Mean Corpuscular Volume 86.5 fL (83.0-100.0); Red Blood Count 3.86 M/mcL (4.19-5.50); Red Cell Distribution Width 13.1 % (11.5-14.5)
[2018-03-23 04:58] LABS: BUN/Creatinine Ratio 13 (6-26); Blood Urea Nitrogen 16 mg/dL (6-20); Carbon Dioxide 23 mEq/L (23-29); Chloride 105 mEq/L (98-107); Glucose 93 mg/dL (70-105); Potassium 4.1 mEq/L (3.5-5.1); Sodium 134 mEq/L (136-145); eGFR For African Americans > 60 (> 60); eGFR For Non-African Americans > 60 (> 60)
[2018-03-23 04:59] LABS: Calcium 8.4 mg/dL (8.6-10.3); Osmolality,Calculated 279 (280-300); Rheumatoid Factor < 10 IU/mL (Less than 14)
[2018-03-23 05:20] LABS: Hepatitis B Surface Antigen Nonreactive (Nonreactive)
[2018-03-23] MEDS: Doxycycline 100 MG CAPSULE PO SCH ×2 (09:22→21:03)
--- NOTE | 2018-03-23 09:53 | Internal Med Progress Note ---
Date of Encounter: 03/23/18 Time of Encounter: 09:51 - Assessment and plan (1) FUO (fever of unknown origin) Current Visit: Yes Status: Acute Assessment and plan: presented with fevers for the last 3 weeks. Etiology unknown at this time. No clear infectious source. Chest CT, ABD CT nonacute. Head CT did show chronic paranasal sinus disease. HIV, blood cultures, ESR and CRP, LDH and peripheral smear have all been checked. Hemodynamically stable, no tachycardia or hypotension. Evaluated by infectious disease who noted possible sinusitis however ID more suspicious for myelodysplastic syndrome. Started on doxycycline. (2) Pancytopenia Current Visit: Yes Status: Acute Assessment and plan: With decrease in WBC, RBC and platelets. S/p bone marrow biopsy on 03/21/18. Hematology following. (3) Sinusitis Current Visit: Yes Status: Acute Assessment and plan: hx chronic sinuistis. Symptomatic with postnasal drip, cough and fever for [address] with chronic paranasal sinus disease. Evaluated by ID who recommended doxycycline for now. Qualifiers: Qualified Code(s): J32.8 - Other chronic sinusitis (4) Sepsis Current Visit: Yes Status: Acute Assessment and plan: Patient with T = 101.6F, RR = 22, WBC = 3.3 on presentation and meets sepsis criteria, unknown source of infection however treating for possible sinusitis. Head CT with chronic paranasal sinus disease. CXR is unremarkable. CT neck/ chest are also unremarkable. CT ab/pelvis does reveal BL nephrolithiasis with 5mm distal left ureteral stone, but asymptomatic. Hemodynamically stable. No tachycardia or hypotension. Continue doxycycline for sinusitis. ID following. Qualifiers: Qualified Code(s): A41.9 - Sepsis, unspecified organism (5) Elevated PSA Current Visit: Yes Status: Acute Assessment and plan: Elevated PSA = 12.[address] pelvis/abd unremarkable. Follow-up outpatient. (6) DVT prophylaxis Current Visit: Yes Status: Acute Assessment and plan: SCDs - Time Spent With Patient Total time spent is greater than 50% in coordination of care (as documented) at patient's floor/unit and/or counseling patient: - Subjective Interval history: Seen and examined at bedside; says he had a fever overnight and broke out into a sweat. Had to change linen and gown. Otherwise says he feels well now and has no complaints. - Constitutional Vitals: Temp Pulse Resp BP Pulse Ox 98.8 F 84 16 110/73 98 03/23/18 07:10 03/23/18 07:10 03/23/18 07:10 03/23/18 07:10 03/23/18 07:10 General appearance: Present: A&O X 3, pleasant, no acute distress, answers questions appropriately - Head Head exam: Present: atraumatic, normocephalic - Eye Eye exam: Present: PERRL, conjuntiva pink, sclera anicteric Pupils: Present: PERRL - Neck Neck exam general surgery: Present: supple, trachea midline. Absent: lymphadenopathy - Respiratory Respiratory exam: Present: CTAB. Absent: accessory muscle use, rales, rhonchi, wheezes - Cardiovascular Cardiovascular exam: Present: RRR, +S1, +S2. Absent: diastolic murmur, gallop, rubs, systolic murmur - GI/Abdominal GI/Abdominal exam: Present: normal bowel sounds, soft, no peritoneal signs. Absent: distended, tenderness - Extremities Exam Extremities exam: Present: warm, radial pulses palpable and symmetrical. Absent : calf tenderness, cyanotic, pedal edema - Neurological Exam Neurological exam: Present: CN II-XII intact, oriented X3, no focal deficits. Absent: pronater drift, facial droop, speech deficit - Skin Skin exam: Present: dry, intact Internal Medicine: Result - Labs CBC & Chem 7: 03/23/18 03:46 03/23/18 03:46 Labs: Short CBC 03/23/18 Range/Units 03:46 WBC 3.9 L (4.3-11.1) K/mcL Hgb 12.0 L (12.9-16.9) g/dL Hct 33.4 L (37.5-50.1) % Plt Count 78 L (140-400) K/mcL BMP 03/23/18 03:46 Sodium 134 L Potassium 4.1 Chloride 105 Carbon Dioxide 23 BUN 16 Creatinine 1.21 Glucose 93 Calcium 8.4 L - ABG Interpretation ABG results: PT/INR, D-dimer PT 15.0 Seconds (9.4-12.1) H 03/21/18 19:44 - VTE Documentation of Mechanical Device: Intermittent pneumatic compression device Consult Discharge Plan - Plan Referrals: NONE,PCP [Primary Care Provider] -
[2018-03-24 07:51] LABS: BUN/Creatinine Ratio 15 (6-26); Blood Urea Nitrogen 17 mg/dL (6-20); Calcium 8.9 mg/dL (8.6-10.3); Carbon Dioxide 24 mEq/L (23-29); Chloride 109 mEq/L (98-107); Glucose 97 mg/dL (70-105); Osmolality,Calculated 287 (280-300); Sodium 138 mEq/L (136-145); eGFR For African Americans > 60 (> 60); eGFR For Non-African Americans > 60 (> 60)
[2018-03-24 08:24] LABS: Hematocrit 32.5 % (37.5-50.1); Hemoglobin 11.4 g/dL (12.9-16.9); Immature Platelets 11.1 % (1.1-6.1); Mean Corpuscular HGB Conc 35.1 g/dL (31.6-35.5); Mean Corpuscular Hemoglobin 30.6 pg (28.0-33.3); Mean Corpuscular Volume 87.4 fL (83.0-100.0); Mean Platelet Volume 12.5 fL (9.4-12.4); Red Blood Count 3.72 M/mcL (4.19-5.50); Red Cell Distribution Width 13.2 % (11.5-14.5)
[2018-03-24] MEDS: Doxycycline 100 MG CAPSULE PO SCH ×2 (08:29→20:41)
--- NOTE | 2018-03-24 09:09 | Internal Med Progress Note ---
Date of Encounter: 03/24/18 Time of Encounter: 09:07 - Assessment and plan (1) FUO (fever of unknown origin) Current Visit: Yes Status: Acute Assessment and plan: presented with fevers for the last 3 weeks. Etiology unknown at this time. No clear infectious source. Chest CT, ABD CT nonacute. Head CT did show chronic paranasal sinus disease. HIV, blood cultures, ESR and CRP, LDH and peripheral smear have all been checked. Hemodynamically stable, no tachycardia or hypotension. Evaluated by infectious disease who noted possible sinusitis however ID more suspicious for myelodysplastic syndrome. Started on doxycycline. Bone marrow pathology pending. Afebrile overnight on 03/23. (2) Pancytopenia Current Visit: Yes Status: Acute Assessment and plan: With decrease in WBC, RBC and platelets. S/p bone marrow biopsy on 03/21/18. Hematology following. (3) Sinusitis Current Visit: Yes Status: Acute Assessment and plan: hx chronic sinuistis. Symptomatic with postnasal drip, cough and fever for [address] with chronic paranasal sinus disease. Evaluated by ID who recommended doxycycline for now. Qualifiers: Sinusitis location: other Chronicity: chronic Qualified Code(s): J32.8 - Other chronic sinusitis (4) Sepsis Current Visit: Yes Status: Acute Assessment and plan: Patient with T = 101.6F, RR = 22, WBC = 3.3 on presentation and meets sepsis criteria, unknown source of infection however treating for possible sinusitis. Head CT with chronic paranasal sinus disease. CXR is unremarkable. CT neck/ chest are also unremarkable. CT ab/pelvis does reveal BL nephrolithiasis with 5mm distal left ureteral stone, but asymptomatic. Hemodynamically stable. No tachycardia or hypotension. Continue doxycycline for sinusitis. ID following. Qualifiers: Sepsis type: sepsis due to unspecified organism Qualified Code(s): A41.9 - Sepsis, unspecified organism (5) Elevated PSA Current Visit: Yes Status: Acute Assessment and plan: Elevated PSA = 12.[address] pelvis/abd unremarkable. Follow-up outpatient. (6) Rash Current Visit: Yes Status: Acute Assessment and plan: To upper back. Possibly secondary to irritation with night sweats. Add PRN cortisone cream (7) DVT prophylaxis Current Visit: Yes Status: Acute Assessment and plan: SCDs - Time Spent With Patient Total time spent is greater than 50% in coordination of care (as documented) at patient's floor/unit and/or counseling patient: - Subjective Interval history: Seen and examined at bedside; says he broke out into a sweat overnight but no fevers. Says he feels well at the moment. - Constitutional Vitals: Temp Pulse Resp BP Pulse Ox 97.6 F 72 16 108/72 97 03/24/18 06:36 03/24/18 06:36 03/24/18 06:36 03/24/18 06:36 03/24/18 06:36 General appearance: Present: A&O X 3, pleasant, no acute distress, answers questions appropriately - Head Head exam: Present: atraumatic, normocephalic - Eye Eye exam: Present: PERRL, conjuntiva pink, sclera anicteric Pupils: Present: PERRL - Neck Neck exam general surgery: Present: supple, trachea midline. Absent: lymphadenopathy - Respiratory Respiratory exam: Present: CTAB. Absent: accessory muscle use, rales, rhonchi, wheezes - Cardiovascular Cardiovascular exam: Present: RRR, +S1, +S2. Absent: diastolic murmur, gallop, rubs, systolic murmur - GI/Abdominal GI/Abdominal exam: Present: normal bowel sounds, soft, no peritoneal signs. Absent: distended, tenderness - Extremities Exam Extremities exam: Present: warm, radial pulses palpable and symmetrical. Absent : calf tenderness, cyanotic, pedal edema - Neurological Exam Neurological exam: Present: CN II-XII intact, oriented X3, no focal deficits. Absent: pronater drift, facial droop, speech deficit - Skin Skin exam: Present: dry, intact, rash (Scattered rash to upper back) Internal Medicine: Result - Labs CBC & Chem 7: 03/24/18 07:10 03/24/18 07:10 Labs: Short CBC 03/24/18 Range/Units 07:10 WBC 4.6 (4.3-11.1) K/mcL Hgb 11.4 L (12.9-16.9) g/dL Hct 32.5 L (37.5-50.1) % Plt Count 92 L (140-400) K/mcL BMP 03/24/18 07:10 Sodium 138 Potassium 4.0 Chloride 109 H Carbon Dioxide 24 BUN 17 Creatinine 1.11 Glucose 97 Calcium 8.9 - ABG Interpretation ABG results: PT/INR, D-dimer PT 15.0 Seconds (9.4-12.1) H 03/21/18 19:44 - VTE Documentation of Mechanical Device: Intermittent pneumatic compression device Consult Discharge Plan - Plan Referrals: NONE,PCP [Primary Care Provider] -
[2018-03-25 01:04] LABS: Hepatitis C Virus Antibody Nonreactive (Nonreactive)
[2018-03-25 01:10] LABS: Hepatitis B Surface Antibody 372.45 mIU/mL
[2018-03-25 05:58] LABS: Hematocrit 32.8 % (37.5-50.1); Hemoglobin 11.6 g/dL (12.9-16.9); Mean Corpuscular HGB Conc 35.4 g/dL (31.6-35.5); Mean Corpuscular Volume 87.7 fL (83.0-100.0); Mean Platelet Volume 12.4 fL (9.4-12.4); Platelet Count 127 K/mcL (140-400); Red Blood Count 3.74 M/mcL (4.19-5.50); Red Cell Distribution Width 13.4 % (11.5-14.5)
[2018-03-25 06:16] LABS: BUN/Creatinine Ratio 15 (6-26); Blood Urea Nitrogen 15 mg/dL (6-20); Carbon Dioxide 23 mEq/L (23-29); Chloride 108 mEq/L (98-107); Glucose 105 mg/dL (70-105); Osmolality,Calculated 287 (280-300); Sodium 138 mEq/L (136-145); eGFR For African Americans > 60 (> 60); eGFR For Non-African Americans > 60 (> 60)
[2018-03-25 07:10] VITALS: BP 126/79
[2018-03-25] MEDS: Doxycycline 100 MG CAPSULE PO SCH (07:37)
[2018-03-25 09:14] LABS: ANA IgG by ELISA DETECTED (None Detected)
[2018-03-25 10:10] LABS: % Iron Saturation 27 % (20-55); Ferritin 895 ng/ml (20-250); Iron 77 mcg/dL (65-175); Transferrin 202 mg/dL (203-362)
[2018-03-25 10:27] LABS: INR 1.1; Prothrombin Time 12.3 Seconds (9.4-12.1)
[2018-03-25 10:30] LABS: Activated Partial Thrombo Time 31.6 Seconds (26.0-36.0)
[2018-03-25 10:53] LABS: Vitamin B12 335 pg/mL (250-1100)
[2018-03-25 10:54] LABS: Folate > 22.3 ng/mL (3.0-16.0)
--- NOTE | 2018-03-25 13:19 | Infectious Disease Progress No ---
Date of Encounter: 03/25/18 Time of Encounter: 13:17 - Assessment and Plan (1) Sepsis Status: Acute SIRS vs. sepsis. The patient had three SIRS criteria on admission. Infectious etiology unclear. Qualifiers: Sepsis type: sepsis due to unspecified organism Qualified Code(s): A41.9 - Sepsis, unspecified organism (2) FUO (fever of unknown origin) Status: Acute Etiology unclear. Infection vs. hematological vs. other. Pancytopenia with fever could be secondary to Ehrlichia or Anaplasma, but the patient denies known tick exposure. No travel history. Improved since starting doxycycline. Afebrile x 48 hours. Rheumatoid factor normal. YRIS pending. ESR mildly elevated, CRP elevated.. Status post BMB 03/22/18. Results are pending. (3) Leukopenia Status: Acute Etiology unclear: Infectious vs. other. Status post BMB. Hem/Onc consulted. Resolved. Qualifiers: Leukopenia type: unspecified Qualified Code(s): D72.819 - Decreased white blood cell count, unspecified (4) Thrombocytopenia Status: Acute Etiology unclear. Status post BMB 03/22/18. Hem/Onc consulted. Resolved. (5) Sinusitis Status: Acute Causative organism unclear. CT of the head showed paranasal sinus disease. Continue doxycycline 100mg PO BID. Duration of treatment depends on the clinical picture, but likely a total of 14 days. Monitor renal function and dose-adjust antibiotics. Qualifiers: Sinusitis location: other Chronicity: chronic Qualified Code(s): J32.8 - Other chronic sinusitis (6) Weight loss Status: Acute (7) Rash Status: Acute Location: Back. Erythematous, macular. Does not appear infectious. Likely contact dermatitis given the distribution and improvement with topical hydrocortisone cream. Continue supportive care. - Subjective Interval history: Patient seen and examined. No acute events noted overnight. Patient sitting up in the bedside chair. States overall he feels great. States no fevers since Sunday, but continues to have drenching night sweats. Denies chills or rigors. Denies chest pain, shortness of breath, or cough. Reports nasal congestion with one episode of bloody discharge. Denies headache or neck pain. Denies nausea, vomiting, diarrhea, or constipation. Denies abdominal pain, urinary complaints, or appetite changes. Complains of an erythematous itchy rash to the back. Denies oral thrush. Infect Dis PN-Objective Data - Labs CBC & Chem 7: 03/25/18 04:55 03/25/18 04:55 Labs: Laboratory Results - last 24 hr 03/22/18 03/23/18 03/23/18 09:48 03:46 03:46 WBC RBC Hgb Hct MCV MCH MCHC RDW Plt Count MPV PT INR APTT Sodium Potassium Chloride Carbon Dioxide BUN Creatinine Est GFR ( Amer) Est GFR (Non-Af Amer) BUN/Creatinine Ratio Glucose Calculated Osmolality Calcium Iron % Saturation Transferrin Ferritin Vitamin B12 Folate YRIS Screen DETECTED A Hep Bs Antibody 372.45 Hepatitis C Ab Screen Nonreactive HIV-1 DNA/RNA Qual PCR NOT DETECTED 03/25/18 03/25/18 03/25/18 04:55 04:55 09:53 WBC 5.8 RBC 3.74 L Hgb 11.6 L Hct 32.8 L MCV 87.7 MCH 31.0 MCHC 35.4 RDW 13.4 Plt Count 127 L MPV 12.4 PT INR APTT Sodium 138 Potassium 4.0 Chloride 108 H Carbon Dioxide 23 BUN 15 Creatinine 1.03 Est GFR ( Amer) > 60 Est GFR (Non-Af Amer) > 60 BUN/Creatinine Ratio 15 Glucose 105 Calculated Osmolality 287 Calcium 9.0 Iron 77 % Saturation 27 Transferrin 202 L Ferritin 895 H Vitamin B12 335 Folate > 22.3 H YRIS Screen Hep Bs Antibody Hepatitis C Ab Screen HIV-1 DNA/RNA Qual PCR 03/25/18 10:01 WBC RBC Hgb Hct MCV MCH MCHC RDW Plt Count MPV PT 12.3 H INR 1.1 APTT 31.6 Sodium Potassium Chloride Carbon Dioxide BUN Creatinine Est GFR ( Amer) Est GFR (Non-Af Amer) BUN/Creatinine Ratio Glucose Calculated Osmolality Calcium Iron % Saturation Transferrin Ferritin Vitamin B12 Folate YRIS Screen Hep Bs Antibody Hepatitis C Ab Screen HIV-1 DNA/RNA Qual PCR Cultures: Cultures 03/23/18 03:46 Blood Culture - Preliminary Peripheral Venipuncture No growth. Serology 03/23/18 03/22/18 Range/Units 03:46 09:48 Hep Bs Antigen Nonreactive (Nonreactive) Hep Bs Antibody 372.45 mIU/mL Hepatitis C Ab Screen Nonreactive (Nonreactive) HIV-1 DNA/RNA Qual PCR NOT DETECTED (Not Detected) Exam - Constitutional Vitals: Temp Pulse Resp BP Pulse Ox 97.9 F 77 16 126/79 98 03/25/18 07:10 03/25/18 07:10 03/25/18 07:10 03/25/18 07:10 03/25/18 07:10 General appearance: average body habitus, cooperative, no acute distress - Head Head exam: Present: atraumatic, normal inspection, normocephalic - Eye Eye exam: Present: EOMI, normal appearance, PERRL Pupils: Present: normal accommodation - ENT ENT exam: Present: mucous membranes moist - Neck Neck exam: Present: normal inspection - Respiratory Respiratory exam: Present: CTAB. Absent: rales, respiratory distress, rhonchi, wheezes - Cardiovascular Cardiovascular exam: Present: RRR, +S1, +S2 - GI/Abdominal GI/Abdominal exam: Present: normal bowel sounds, soft. Absent: distended, tenderness - Extremities Exam Extremities exam: Present: normal inspection. Absent: joint swelling, pedal edema, tenderness - Back Exam Back exam: Present: rash noted (Erythematous, macular rash noted to the back. No pustules, cellulitis, or drainage noted.) - Neurological Exam Neurological exam: Present: alert, oriented X3, no focal deficits - Psychiatric Psychiatric exam: Present: normal affect, normal mood - Skin Skin exam: Present: dry, intact, normal color, rash (Back ), warm - VTE Documentation of Mechanical Device: Intermittent pneumatic compression device Consult Discharge Plan - Plan Instructions: Doxycycline (By mouth), Sinusitis (GEN), Thrombocytopenia (DC), Fever in Adults, [employer] (GEN) Additional Instructions: Follow-up appointments: If there is not an appointment listed below, please call your physician and schedule a follow-up appointment. If you have congestive heart failure and your symptoms return, make an appointment with your physician. Medication List: Carry an up to date list of medications you are taking at all time. We have given you an updated medication list including any new medications that you have been prescribed. Please provide that list to your primary provider Symptoms: If your condition changes or you experience any of the following symptoms, notify your physician immediately: Unusual or worsening pain, fever, persistent nausea and vomiting, bleeding, increase in swelling (especially in your legs), sudden weight gain, extreme dizziness, chest pain, increased drainage or redness from a wound or incision. Go to the emergency department if you experience a problem with breathing. Weights: If you have a history of swelling or shortness of breath, weigh yourself daily and notify your physician if you have a weight gain of two or more pounds in one day or 5 or more pounds in a week. If you experience any of the warning signs for stroke: Sudden numbness or weakness of the face, arm or leg; especially on one side of the body, sudden confusion, trouble speaking or understanding, sudden trouble seeing in one or both eyes, sudden trouble walking, dizziness, loss of balance or coordination, sudden sever headache with no cause; Call 911 or go to the emergency room. Stroke is a medical emergency. Some risk factors for stroke: Age, cigarette smoking, diabetes, excessive alcohol consumption, family history , high blood pressure, overweight, physical inactivity, prior stroke, heart attack, diagnosis of carotid artery stenosis or other artery disease. If you smoke, STOP: Smoking or tobacco use significantly increases your risk of heart and lung disease. Your chance of disease greatly increases if you continue to smoke. For more information, call the [place] tobacco quit line for smoking cessation - QUIT-NOW ( ) Referrals: Venkat Gardiner [Non-Partnered Physician] - 04/02/18 9:00 am NONE,PCP [Primary Care Provider] - Prescriptions: Doxycycline 100 mg PO BID 11 Days #22 capsule - Attending Attestation I examined this patient and my medical decision-making was reviewed with the Resident Physician. I agree with the documented findings, disposition and treatment plan as described except to the extent set forth below.
--- NOTE | 2018-03-25 14:28 | Oncology Inp Progress Note ---
<Michelle Mayes L - Last Filed: 03/25/18 15:05> Date of Encounter: 03/25/18 Time of Encounter: 12:20 (1) Pancytopenia Status: Acute Assessment and plan: Acute pancytopenia -improving. Etiology uncertain as to whether infectious etiology versus malignant. He has been afebrile over past 24 hours, most recent recorded fever was 100.4 on 03/22 around 10 pm. Continues to have drenching night sweats. ID consultation note reviewed-continuing Doxycycline at discharge x14 days for potential sinusitis. YRIS screen detected, ESR and CRP only mildly elevated, may consider rheumatology referral on outpatient basis dependent upon BMB results. Bone marrow biopsy/aspiration-pathology pending He has had CT imaging of his head, neck, chest, abdomen and pelvis without acute findings or lymphadenoapthy. CT head shows findings concerning for chronic sinusitis. Patient has a follow up arranged in one week with Dr. Gardiner to discuss BMB results. Patient is to call the clinic for any questions or concerns in meantime. Please refer to Dr. Latif's attestation below for additional details. Oncology: Subj Interval history: Patient resting in bed with at bedside. He has no physical complaints at this time and reports that overall his symptoms are improving. He continues to have drenching night sweats. He has been afebrile since Sunday night. Appetite has improved. - Constitutional Vitals: Vital Signs Temp Pulse Resp BP Pulse Ox 03/25/18 07:10 97.9 F 77 16 126/79 98 03/24/18 22:12 98.0 F 81 16 143/89 100 03/24/18 20:14 98.0 F 78 16 120/74 98 03/24/18 15:36 98.1 F 72 18 121/75 96 Intake and Output 03/24/18 03/25/18 03/25/18 23:59 07:59 15:59 Intake Total 220 / 220 240 / 240 Output Total 1000 / 1000 Balance 220 / 220 -1000 / -1000 240 / 240 Intake: Oral 220 / 220 240 / 240 Output: Urine 1000 / 1000 Other: Meal Dinner Breakfast Percent of Meal Consumed 85% 100% Weight 109.5 kg Patient Weight 03/25/18 23:59 Weight 109.5 kg General appearance: cooperative, no acute distress, no febrile - Head Head exam: Present: atraumatic - ENT ENT exam: Present: mucous membranes moist - Respiratory Respiratory exam: Present: CTAB. Absent: respiratory distress - Cardiovascular Cardiovascular exam: Present: RRR, +S1, +S2 - GI/Abdominal GI/Abdominal exam: Present: normal bowel sounds, soft. Absent: tenderness - Extremities Exam Extremities exam: Present: normal inspection. Absent: calf tenderness - Neurological Exam Neurological exam: Present: alert, oriented X3, no focal deficits, strengths equal and symetr throughout - Psychiatric Psychiatric exam: Present: normal affect, normal mood - Skin Skin exam: Present: dry, intact, normal color, warm Oncology: Obj Data - Labs CBC & Chem 7: 03/25/18 04:55 03/25/18 04:55 - ABG Interpretation ABG results: PT/INR, D-dimer PT 12.3 Seconds (9.4-12.1) H 03/25/18 10:01 Consult Discharge Plan - Plan Instructions: Doxycycline (By mouth), Sinusitis (GEN), Thrombocytopenia (DC), Fever in Adults, Collector (GEN) Additional Instructions: Follow-up appointments: If there is not an appointment listed below, please call your physician and schedule a follow-up appointment. If you have congestive heart failure and your symptoms return, make an appointment with your physician. Medication List: Carry an up to date list of medications you are taking at all time. We have given you an updated medication list including any new medications that you have been prescribed. Please provide that list to your primary provider Symptoms: If your condition changes or you experience any of the following symptoms, notify your physician immediately: Unusual or worsening pain, fever, persistent nausea and vomiting, bleeding, increase in swelling (especially in your legs), sudden weight gain, extreme dizziness, chest pain, increased drainage or redness from a wound or incision. Go to the emergency department if you experience a problem with breathing. Weights: If you have a history of swelling or shortness of breath, weigh yourself daily and notify your physician if you have a weight gain of two or more pounds in one day or 5 or more pounds in a week. If you experience any of the warning signs for stroke: Sudden numbness or weakness of the face, arm or leg; especially on one side of the body, sudden confusion, trouble speaking or understanding, sudden trouble seeing in one or both eyes, sudden trouble walking, dizziness, loss of balance or coordination, sudden sever headache with no cause; Call 911 or go to the emergency room. Stroke is a medical emergency. Some risk factors for stroke: Age, cigarette smoking, diabetes, excessive alcohol consumption, family history , high blood pressure, overweight, physical inactivity, prior stroke, heart attack, diagnosis of carotid artery stenosis or other artery disease. If you smoke, STOP: Smoking or tobacco use significantly increases your risk of heart and lung disease. Your chance of disease greatly increases if you continue to smoke. For more information, call the [place] tobacco quit line for smoking cessation 3-776- QUIT-NOW ( ) Referrals: Venkat Gardiner [Non-Partnered Physician] - 04/02/18 9:00 am NONE,PCP [Primary Care Provider] - Prescriptions: Doxycycline 100 mg PO BID 11 Days #22 capsule <Keila Tanner - Last Filed: 03/25/18 17:01> Date of Encounter: 03/25/18 Oncology: Subj Interval history: I examined this patient and my medical decision-making was reviewed with the Advanced Practice Nurse, Michelle Mayes. I agree with the documented findings, disposition and treatment plan as described except to the extent set forth below. - Constitutional Vitals: Vital Signs Temp Pulse Resp BP Pulse Ox 03/25/18 07:10 97.9 F 77 16 126/79 98 03/24/18 22:12 98.0 F 81 16 143/89 100 03/24/18 20:14 98.0 F 78 16 120/74 98 Intake and Output 03/25/18 03/25/18 03/25/18 07:59 15:59 23:59 Intake Total 240 / 240 Output Total 1000 / 1000 Balance -1000 / -1000 240 / 240 Intake: Oral 240 / 240 Output: Urine 1000 / 1000 Other: Meal Breakfast Percent of Meal Consumed 100% Weight 109.5 kg Patient Weight 03/25/18 23:59 Weight 109.5 kg Oncology: Obj Data - Labs CBC & Chem 7: 03/25/18 04:55 03/25/18 04:55 Labs: Laboratory Results - last 24 hr 03/22/18 03/23/18 03/23/18 09:48 03:46 03:46 WBC RBC Hgb Hct MCV MCH MCHC RDW Plt Count MPV PT INR APTT Sodium Potassium Chloride Carbon Dioxide BUN Creatinine Est GFR ( Amer) Est GFR (Non-Af Amer) BUN/Creatinine Ratio Glucose Calculated Osmolality Calcium Iron % Saturation Transferrin Ferritin Vitamin B12 Folate YRIS Screen DETECTED A Hep Bs Antibody 372.45 Hepatitis C Ab Screen Nonreactive HIV-1 DNA/RNA Qual PCR NOT DETECTED 03/25/18 03/25/18 03/25/18 04:55 04:55 09:53 WBC 5.8 RBC 3.74 L Hgb 11.6 L Hct 32.8 L MCV 87.7 MCH 31.0 MCHC 35.4 RDW 13.4 Plt Count 127 L MPV 12.4 PT INR APTT Sodium 138 Potassium 4.0 Chloride 108 H Carbon Dioxide 23 BUN 15 Creatinine 1.03 Est GFR ( Amer) > 60 Est GFR (Non-Af Amer) > 60 BUN/Creatinine Ratio 15 Glucose 105 Calculated Osmolality 287 Calcium 9.0 Iron 77 % Saturation 27 Transferrin 202 L Ferritin 895 H Vitamin B12 335 Folate > 22.3 H YRIS Screen Hep Bs Antibody Hepatitis C Ab Screen HIV-1 DNA/RNA Qual PCR 03/25/18 10:01 WBC RBC Hgb Hct MCV MCH MCHC RDW Plt Count MPV PT 12.3 H INR 1.1 APTT 31.6 Sodium Potassium Chloride Carbon Dioxide BUN Creatinine Est GFR ( Amer) Est GFR (Non-Af Amer) BUN/Creatinine Ratio Glucose Calculated Osmolality Calcium Iron % Saturation Transferrin Ferritin Vitamin B12 Folate YRIS Screen Hep Bs Antibody Hepatitis C Ab Screen HIV-1 DNA/RNA Qual PCR - ABG Interpretation ABG results: PT/INR, D-dimer PT 12.3 Seconds (9.4-12.1) H 03/25/18 10:01
--- NOTE | 2018-03-25 14:50 | Discharge Summary ---
Orders not resulted at time of discharge: Pending orders 03/22/18 09:33 Surgical Pathology [PTH] Routine 03/22/18 14:15 Bone Marrow, Flow & Cytogen Routine 03/23/18 03:46 Culture,Blood [BC] AM 0400 03/26/18 04:00 BMP [Basic Metabolic Panel] AM 0400 Complete Blood Count w/o Diff [HEME] AM 0400 Complete Blood Count w/o Diff [HEME] AM 0400 03/27/18 04:00 BMP [Basic Metabolic Panel] AM 0400 Complete Blood Count w/o Diff [HEME] AM 0400 Complete Blood Count w/o Diff [HEME] AM 0400 03/28/18 04:00 Complete Blood Count w/o Diff [HEME] AM 0400 Date of Encounter: 03/25/18 Time of Encounter: 14:46 - Discharge Diagnosis (1) FUO (fever of unknown origin) Priority: Primary Status: Acute Assessment and Plan: presented with fevers for the last 3 weeks. Etiology unknown; no clear infectious source. Chest CT, ABD CT nonacute. Head CT did show chronic paranasal sinus disease. Evaluated by ID who noted infection versus hematological versus other cause. Symptoms improved after starting doxycycline. Has been afebrile for over 48 hours. S/p bone marrow bx 03/22/18; results pending. Continue doxycycline for a total of 2 weeks. Follow-up with oncology for bone marrow biopsy results (2) Pancytopenia Priority: Primary Status: Acute Assessment and Plan: With decrease in WBC, RBC and platelets. S/p bone marrow biopsy on 03/21/18. Follow-up with Oncology outpatient (3) Sinusitis Priority: Primary Status: Acute Assessment and Plan: hx chronic sinuistis. Symptomatic with postnasal drip, cough and fever for [address] with chronic paranasal sinus disease. Evaluated by ID who recommended doxycycline for a total of 14 days. Qualifiers: Sinusitis location: other Chronicity: chronic Qualified Code(s): J32.8 - Other chronic sinusitis (4) Sepsis Priority: Primary Status: Acute Assessment and Plan: T = 101.6F, RR = 22, WBC = 3.3 on presentation and meets sepsis criteria, unknown source of infection however treating for possible sinusitis. Head CT with chronic paranasal sinus disease. CXR is unremarkable. CT neck/chest are also unremarkable. CT ab/pelvis does revealed BL nephrolithiasis with 5mm distal left ureteral stone, but asymptomatic. Hemodynamically stable. No tachycardia or hypotension. Continue doxycycline for sinusitis. ID followed. Resolved Qualifiers: Sepsis type: sepsis due to unspecified organism Qualified Code(s): A41.9 - Sepsis, unspecified organism (5) Elevated PSA Priority: Secondary Status: Acute Assessment and Plan: Elevated PSA = 12.[address] pelvis/abd unremarkable. Follow-up outpatient. (6) Rash Priority: Primary Status: Acute Assessment and Plan: To upper back. Possibly secondary to moisture/irritation with night sweats. Resolved with PRN hydrocortisone cream Hospital course: Please see assessment and plan for hospital course Discharge discussed with: patient (Seen and examined at bedside. Says he had uneventful night but did have an episode of night sweats. No fevers. No chills. Says he feeling better would like to go home if possible.) - Time Spent with Patient Total time spent providing and/or coordinating discharge services: - Discharge Medications Prescriptions: Doxycycline 100 mg PO BID 11 Days #22 capsule Home Medications: Cetirizine HCl [Zyrtec] 10 mg PO DAILY PRN 03/21/18 [History] Doxycycline 100 mg PO BID 11 Days #22 capsule 03/25/18 [Rx] Allergies/Adverse Reactions: 3 Allergy/AdvReac Type Severity Reaction Status Date / Time aspirin Allergy Anaphylaxis Verified 03/22/18 08:34 NSAIDS (Non-Steroidal Allergy Anaphylaxis Verified 03/22/18 08:34 Anti-Inflamma Date of admission: 03/22/18 05:50 Primary care physician: PCP NONE Consults: 03/22/18 09:33 Consult to Interventional Radiology [CONS] Routine Consulting Provider: Radiology Interventional Cols Reason for Consult: bone marrow biopsy and [id number] flow cytometry Call Completed: Yes 03/22/18 11:44 Consult to Infectious Diseases [CONS] Routine Consulting Provider: Infectious Disease Belinda Reason for Consult: FUO Call Completed: Yes Discharging clinician: Gail Gaona Anticipated date of discharge: 03/25/18 - Constitutional Vitals: Temp Pulse Resp BP Pulse Ox 97.9 F 77 16 126/79 98 03/25/18 07:10 03/25/18 07:10 03/25/18 07:10 03/25/18 07:10 03/25/18 07:10 General appearance: Present: A&O X 3, pleasant, no acute distress, answers questions appropriately - Head Head exam: Present: atraumatic, normocephalic - Eye Eye exam: Present: PERRL, conjuntiva pink, sclera anicteric Pupils: Present: PERRL - Neck Neck exam general surgery: Present: supple, trachea midline. Absent: lymphadenopathy - Respiratory Respiratory exam: Present: CTAB. Absent: accessory muscle use, rales, rhonchi, wheezes - Cardiovascular Cardiovascular exam: Present: RRR, +S1, +S2. Absent: diastolic murmur, gallop, rubs, systolic murmur - GI/Abdominal GI/Abdominal exam: Present: normal bowel sounds, soft, no peritoneal signs. Absent: distended, tenderness - Extremities Exam Extremities exam: Present: warm, radial pulses palpable and symmetrical. Absent : calf tenderness, cyanotic, pedal edema - Neurological Exam Neurological exam: Present: CN II-XII intact, oriented X3, no focal deficits. Absent: pronater drift, facial droop, speech deficit - Skin Skin exam: Present: dry, intact - Patient Status Disposition: Home, Self-Care Condition: Good Functional capacity at discharge: independent ambulation Overall status at discharge: patient is progressing back to baseline - Discharge Instructions Instructions: Thrombocytopenia (DC), Fever in Adults, Detective Private Eye (GEN), Doxycycline (By mouth), Sinusitis (GEN) Follow Up With: NONE,PCP [Primary Care Provider] - Venkat Gardiner [Non-Partnered Physician] - 04/02/18 9:00 am Additional Instructions: Follow-up appointments: If there is not an appointment listed below, please call your physician and schedule a follow-up appointment. If you have congestive heart failure and your symptoms return, make an appointment with your physician. Medication List: Carry an up to date list of medications you are taking at all time. We have given you an updated medication list including any new medications that you have been prescribed. Please provide that list to your primary provider Symptoms: If your condition changes or you experience any of the following symptoms, notify your physician immediately: Unusual or worsening pain, fever, persistent nausea and vomiting, bleeding, increase in swelling (especially in your legs), sudden weight gain, extreme dizziness, chest pain, increased drainage or redness from a wound or incision. Go to the emergency department if you experience a problem with breathing. Weights: If you have a history of swelling or shortness of breath, weigh yourself daily and notify your physician if you have a weight gain of two or more pounds in one day or 5 or more pounds in a week. If you experience any of the warning signs for stroke: Sudden numbness or weakness of the face, arm or leg; especially on one side of the body, sudden confusion, trouble speaking or understanding, sudden trouble seeing in one or both eyes, sudden trouble walking, dizziness, loss of balance or coordination, sudden sever headache with no cause; Call 911 or go to the emergency room. Stroke is a medical emergency. Some risk factors for stroke: Age, cigarette smoking, diabetes, excessive alcohol consumption, family history , high blood pressure, overweight, physical inactivity, prior stroke, heart attack, diagnosis of carotid artery stenosis or other artery disease. If you smoke, STOP: Smoking or tobacco use significantly increases your risk of heart and lung disease. Your chance of disease greatly increases if you continue to smoke. For more information, call the [place] tobacco quit line for smoking cessation - QUIT-NOW ( ) - Diet and Activity Activity: increase activity as tolerated Diet: advance to your usual diet - VTE Documentation of Mechanical Device: Intermittent pneumatic compression device
[2018-03-28 07:25] LABS: ANA IgG IFA Titer <1:80 (<1:80)
== END 2018-03-25 15:53 | disposition home or self-care (01) | DRG 872 ==
LOC: EMEROO 18:11 → 3BNU 18:11
PROVIDERS: ADMIT Family Medicine; ATTEND Family Medicine